=== PATIENT | female | born 1990 | race American Indian/Alaskan Native ===

== ENCOUNTER 2018-05-15 06:58 | Inpatient (IN) | payer MEDICAID ==
--- NOTE | 2018-05-14 23:22 | History and Physical Report ---
History of Present Illness Date of examination: 05/15/18 Chief complaint: Patient intermittent for repeat section at 36 weeks due to suspicion of placenta acreta. Patient does have documented placenta previa by ultrasound and MRI History of present illness: Menstrual History Regularity: regular Menses every: 30 days Duration: 4-5 LMP: 11/06/2017 LMP character: normal test type: urine test BC at conception: none Planned ? no EDC Calculations LMP: 08/13/2018 EDC Confirmation: 06/12/2018 Past History : 3 Term Births: 1 Premature Births: 1 Living Children: 1 Para: 2 Aborta: 0 Elect. Ab: 0 Spont. Ab: 0 Ectopics: 0 # 1 Delivery date: 2009 Weeks Gestation: 20wks Delivery type: Delivery location: [facility] Sex: twins weight: unknown Comments: after fall down stairs. Pt states she never saw babies # 2 Delivery date: 2014 Weeks Gestation: 41 labor: no Delivery type: Delivery location: [facility] [place] Sex: Female weight: 7# Comments: CPD Past Medical History: Sickle cell - patient does't know if she has dx or trait, no hx crisis Past Surgical History: Past Medical History Surgery (Non-gynecology teacher): Abnormal PAP: negative Family Hx: no known family medical hx Social Hx: single no ETOH/Drugs/Smoking Infection History Hx of STD: none HIV Risk Eval: low risk Hepatitis B Risk Eval: low risk Personal hx. of genital herpes: no Partner hx. of genital herpes: no Rash, Viral, or Febrile illness since last LMP? no Varicella/Chicken Pox Status: Unknown Genetic History Congenital Heart Defect: Mom: no Dad: no Criselda Disease: Mom: no Dad: no Thalassemia Mom: no Dad: no Neural Tube Defect Mom: no Dad: no Down's Syndrome Mom: no Dad: no Chriss-Sachs Mom: no Dad: no Sickle Cell Disease/Trait Mom: no Dad: no Hemophilia Mom: no Dad: no Muscular Dystrophy Mom: no Dad: no Cystic Fibrosis Mom: no Dad: no [place] Chorea Mom: no Dad: no Mental Retardation Mom: no Dad: no Fragile X Mom: no Dad: no Other Genetic/Chromosomal Disorder Mom: no Dad: no Child w/other defect Mom: no Dad: no Enviromental Exposures Xray Exposure: no Medication, drug, or alcohol use since LMP: no Chemical/Other Exposure: no Exposure to Cat Liter: no Hx of Parvovirus (Fifth Disease): no Occupational Exposure to Children: none Active Medications (reviewed today): None Current Allergies (reviewed today): No known allergies Laboratory Results Past History Past Medical History: other (See HPI) Past Surgical History: section, other (See HPI) Social history: other (See HPI) - Obstetrical History Expected Date of Delivery: 06/12/18 Actual Gestation: 36 Week(s) 0 Day(s) : 3 Para: 1 Hx # Term Pregnancies: 1 Number of Pregnancies: 1 Spontaneous Abortions: 0 Induced : 0 Number of Living Children: 1 Medications and Allergies Allergies Allergy/AdvReac Type Severity Reaction Status Date / Time No Known Allergies Allergy Verified 05/15/18 07:11 Home Medications Medication Instructions Recorded Confirmed Last Taken Type RX: No Known Home Medications [No 05/15/18 05/15/18 Unknown History Reported Home Medications] - Physical Exam Breasts: Positive: deferred Cardiovascular: Regular rate Lungs: Positive: Normal air movement Abdomen: Positive: normal appearance, soft Genitourinary (Female): Positive: normal external genitalia Uterus: Positive: enlarged - Obstetrical FHR: auscultation normal Uterine Contraction Pattern: Absent Results Result Diagrams: 05/15/18 07:41 All other labs normal. Assessment and Plan - Patient Problems (1) Insufficient care in third trimester Current Visit: No Status: Acute (2) Placenta accreta Onset Date: ~04/30/18 Current Visit: No Status: Acute Qualifiers: Trimester: third trimester Qualified Code(s): O43.213 - Placenta accreta, third trimester Plan to address problem: section will be done with Dr. Vargas preparations ready in case of hysterectomy may be required. This was then discussed with the patient several occasions with us and with the perinatologist. Patient understands and desires to proceed (3) Previous section Onset Date: ~04/30/18 Current Visit: No Status: Acute Plan to address problem: Patient informed the risks of the surgery include bleeding possibly bleeding heavy enough to require blood transfusion, infection possible damage to bowel bl adder ureter. All questions answered. Patient agrees to proceed
[~2018-05-15 06:58] MED LIST: ANCEF/STERILE WATER 2 GM/20 ML 2 GM/20 ML SYRINGE IV NR
[2018-05-15] MEDS ORDERED: BICITRA PO NR (07:30)
[2018-05-15] MEDS ORDERED: REGLAN IV NR (07:30)
[2018-05-15] MEDS ORDERED: PITOCin/NS 20 UNIT/1000ML DRIP 20 UNITS/1,000 ML BAG IV SCH ×2 (07:30→14:23)
[2018-05-15] MEDS ORDERED: PEPCID IV NR (07:30)
[2018-05-15] MEDS: LACTATED RINGERS 1,000 ML IV SCH ×3 (07:50→18:34)
[2018-05-15 07:54] LABS: Basophils % (Auto) 0.2 % (0.0-1.8); Eosinophils # (Auto) 0.2 K/mm3 (0.0-0.4); Hematocrit 34.3 % (30.3-42.9); Hemoglobin 11.2 gm/dl (10.1-14.3); Lymphocytes # (Auto) 1.7 K/mm3 (1.2-5.4); Lymphocytes % (Auto) 22.8 % (13.4-35.0); Mean Corpuscular HGB Conc 33 % (30-34); Monocytes # (Auto) 0.8 K/mm3 (0.0-0.8); Monocytes % (Auto) 10.3 % (0.0-7.3); Platelet Count 302 K/mm3 (140-440); Red Blood Count 4.94 M/mm3 (3.65-5.03); Red Cell Distribution Width 16.4 % (13.2-15.2)
[2018-05-15 08:00] LABS: Mean Corpuscular Volume 70 fl (79-97)
[2018-05-15] MEDS ORDERED: ASTRAMORPH PF 10MG/10ML ONE (08:26)
[2018-05-15] MEDS ORDERED: SENSORCAINE/DEXTR 0.75-8.25% INFILTRATI ONE (08:26)
[2018-05-15] MEDS ORDERED: SUBLIMAZE ONE (08:26)
[2018-05-15] MEDS ORDERED: ANCEF/STERILE WATER 2 GM/20 ML 2 GM/20 ML SYRINGE IV NR (08:30)
[2018-05-15] MEDS ORDERED: ANCEF/STERILE WATER 2 GM/20 ML 2 GM/20 ML SYRINGE IV ONE (08:38)
[2018-05-15] MEDS ORDERED: NARCAN 0.4 MG/1 ML IV PRN ×2 (09:00→14:23)
[2018-05-15] MEDS ORDERED: SODIUM CHLORIDE FLUSH SYRINGE 10 ML IV PRN (09:00)
[2018-05-15] MEDS ORDERED: ANCEF/STERILE WATER 2 GM/20 ML IV ONE (09:00)
[2018-05-15] MEDS ORDERED: ZOFRAN IV PRN ×2 (09:00→14:23)
[2018-05-15] MEDS ORDERED: PHENERGAN PO PRN (09:00)
[2018-05-15] MEDS ORDERED: PHENERGAN PR PRN (09:00)
[2018-05-15] MEDS ORDERED: NACL 0.9% IR ONE (09:28)
[2018-05-15] MEDS ORDERED: WATER FOR IRRIG STERILE IR ONE (09:29)
[2018-05-15] MEDS ORDERED: VERSED ONE (09:43)
[2018-05-15] MEDS ORDERED: NEO SYNEPHRINE ONE (09:58)
[2018-05-15] MEDS ORDERED: ZOFRAN ONE (09:59)
[2018-05-15] MEDS ORDERED: KETALAR ONE (10:00)
[2018-05-15] MEDS ORDERED: NACL 0.9% 500 ML 500 ML IV NR (10:30)
--- NOTE | 2018-05-15 11:08 | Operative Report ---
Operative Report Operative Report: Date of procedure: 05/15/2018 Pre-operative diagnosis:. at 36 weeks with previous section, placenta previa suspicion of placenta accreta Post-operative diagnosis: Same plus definitive placental accreta with hemorrhaging Procedure name(s): Low transverse section with a supracervical hysterectomy Surgeon: Solomon Herron MD Supervising Broker: Maya Vargas M.D. Anesthesia: Spinal EBL: 2000 mL Complications: Placenta accreta Findings: Male weight 5 lbs. 11 oz. Apgars 8 at 1 minute and 8 at 5 minutes. Normal tubes and ovaries bilaterally. Placenta previa noted with the placenta accreta on the posterior lower uterine segment. Could not remove the placenta posteriorly due to placenta invading the myometrium posteriorly Specimen(s): Procedure: The patient was brought to the operating room. A spinal was placed without any complications. She was then placed in left lateral tilt. Prepped and draped in the usual sterile manner. After testing for adequate anesthesia level, a Pfannenstiel incision was made through her previous scar. This incision was taken down to the fascia. The fascia was then nicked in the midline. This incision was extended out laterally with Wiggins scissors. The fascia was then sharply and bluntly from the underlying rectus muscles. The rectus muscles were bluntly and sharply . The peritoneum was then entered with the stamping press operator's fingers. This incision was spread vertically with care not to damage the bladder below. The bladder flap was then formed sharply and bluntly with Metzenbaum scissors. The Mauricio self-retaining tractor was then placed without any difficulty. A transverse incision was made in lower uterine segment. This incision was extended laterally with the operators fingers. The anterior placenta was present. The amniotic sac was then entered bluntly with the stamping press operator's fingers. The was delivered from the vertex position. Bulb suction on the mother's abdomen. Cord was double clamped and cut. The was then passed to the nursery personnel who were in attendance. The above scores were given by the nursery personnel. The placenta did not release with uterine massage and manually try to remove the placenta but they're accreta as noted above was noted. The patient was significant amount of bleeding from the bed with placenta was lying in incision was made and removed to hysterectomy. As noted above patient had had multiple conversations about this possibility and she verbally agreed to proceed with hysterectomy. The uterine fundus was then grasped with a tenaculum. Starting on the patient's right side the round ligament was double clamped cut and ligated. Anteriorly the bladder flap was formed. An avascular window under the utero- ovarian complex was created by the stamping press operator's fingers the uterine ovarian complex was double clamped and cut using Marni clamps and 0 Vicryl which was used throughout the case. The uterine vessels were then skeletonized clamped. The same procedure was then performed on the patient's left side. With the bladder flap pushed away further and the left uterine vessels clamped and cut. Again the bladder was pushed away and the clamp uterine vessels on the right side were cut. Progressively the uterine vasculature were clamped with a straight Marni clamp and cut on each side. Due to the distortion of anatomy and the end of the cervix not positively palpated decision was made to do a supracervical hysterectomy. The reach past the level of the placenta previa and clamps were across the lower uterine segment. The specimen cut away from the cervical stump. These cord stump was closed with a Lindsey stitch. The rest of the stump was closed in midline with beaanm-[id number] sutures. The bladder flap was copiously irrigated and found to be hemostatic after additional [id number]-[id number] sutures. The pelvis was copiously irrigated and found to be hemostatic. Surgicel was placed along the vaginal cuff for postoperative hemostasis all instruments were then removed. The rectus muscles were appr oximated with 0 Vicryl. The rectus muscles were inspected and found to be hemostatic and irrigation Bovie. The fascia was then closed in a running manner with 0 Vicryl. This closure was hemostatic at the irrigation and Bovie. The skin was then reapproximated subcuticularly with 4 Vicryl. The patient tolerated the procedure well. She was awakened in the operating room. Accompanied to recovery room in good condition. Instrument count correct 3
[2018-05-15] MEDS ORDERED: DILAUDID ONE (11:22)
[2018-05-15] MEDS ORDERED: LANSINOH TP PRN (14:23)
[2018-05-15] MEDS ORDERED: TUCKS PAD TP PRN (14:23)
[2018-05-15] MEDS ORDERED: MILK OF MAGNESIA PO PRN (14:23)
[2018-05-15] MEDS ORDERED: SODIUM CHLORIDE FLUSH SYRINGE 10 ML IV NR (14:23)
[2018-05-15] MEDS ORDERED: TORADOL ONE (15:08)
[2018-05-15] MEDS: TORADOL IV SCH ×2 (15:14→22:41)
--- NOTE | 2018-05-15 16:52 | Event Note ---
Date: 05/15/18 Day of surgery. Discuss operative findings with patient and questions answered. She will receive an second unit of packed red blood cells. Patient without fever. Good urine output. We will continue routine postoperative care.
[2018-05-15] MEDS: ANCEF/NS 1 GM/50 ML 1 GM/50 ML BAG IV SCH (18:34)
[2018-05-15 21:32] LABS: Hematocrit 21.8 % (30.3-42.9); Hemoglobin 7.1 gm/dl (10.1-14.3)
[2018-05-15] MEDS ORDERED: NUBAIN IV ONE (22:15)
[2018-05-15] MEDS: FEOSOL PO SCH (22:41)
[2018-05-16] MEDS: ANCEF/NS 1 GM/50 ML 1 GM/50 ML BAG IV SCH (01:24)
[2018-05-16] MEDS: LACTATED RINGERS 1,000 ML IV SCH (02:10)
[2018-05-16] MEDS ORDERED: NACL 0.9% 500 ML 500 ML IV ONE (06:26)
[2018-05-16] MEDS ORDERED: BENADRYL PO ONE (06:43)
[2018-05-16] MEDS ORDERED: TYLENOL PO ONE (06:44)
[2018-05-16] MEDS: NORCO 5/325 PO PRN ×3 (08:10→16:30)
[2018-05-16] MEDS: IBUPROFEN PO PRN ×2 (08:11→16:30)
--- NOTE | 2018-05-16 08:16 | Progress Note ---
Assessment and Plan POD 1 S/p c/s for placenta previa with hysterectomy d/t placental accreta. Patient is resting comfortably in bed, reports feeling well. Unable to assess incision d/t dressing still in place-to be removed this morning with shower. Dressing is clean, dry, intact, no drainage or bleeding noted, no signs of infection. Patient reports bleeding is small. Denies any dizziness when standing or ambulating. Review of recent VS- hr slightly elevated. Apical pulse 98 currently. 1 unit PRBC ordered to be given today. Will repeat H&H at 1100 today. Continue current Post op pathway. Subjective - Subjective Date of service: 05/16/18 Principal diagnosis: POD 1 s/p section Patient reports: appetite normal, voiding normally, pain well controlled, ambulating normally, no dizzy ambulation, no flatus Objective - Vital Signs Latest vital signs: Vital Signs Temp Pulse Resp BP BP Pulse Ox 05/16/18 03:35 98.9 F 108 H 16 112/57 98 05/16/18 01:05 99.1 F 116 H 18 103/51 98 05/15/18 22:56 18 05/15/18 22:41 18 05/15/18 19:55 98.8 F 104 H 18 107/56 97 05/15/18 18:15 98.1 F 98 H 14 98/43 95 05/15/18 17:06 98.0 F 96 H 18 101/49 96 05/15/18 16:25 97.7 F 98 H 14 95/50 98 05/15/18 15:38 97.9 F 97 H 16 104/54 98 05/15/18 15:14 18 05/15/18 15:05 97.6 F 95 H 18 101/48 100 05/15/18 14:45 97.9 F 114 H 12 101/49 99 05/15/18 14:20 97.9 F 101 H 20 110/49 94 05/15/18 13:35 98 F 100 H 16 122/58 100 05/15/18 13:20 98 F 106 H 14 115/61 100 05/15/18 13:00 97.4 F L 100 H 19 117/62 100 05/15/18 12:45 97.5 F L 99 H 17 118/60 100 05/15/18 12:30 99 H 16 117/60 100 05/15/18 12:28 97.7 F 97 H 16 117/60 100 05/15/18 12:15 97.5 F L 110 H 17 119/64 100 05/15/18 12:04 97.5 F L 108 H 16 123/66 100 05/15/18 12:00 106 H 16 123/66 100 05/15/18 11:45 108 H 16 135/67 100 05/15/18 11:30 103 H 18 133/64 100 05/15/18 11:25 90 16 125/62 100 05/15/18 11:20 87 20 116/53 100 05/15/18 11:15 106 H 18 138/64 93 05/15/18 11:11 97.3 F L 109 H 14 148/99 100 05/15/18 08:10 99.0 F 18 Intake and Output 05/15/18 05/16/18 05/16/18 23:59 07:59 15:59 Intake Total 680 1430 Output Total 1100 1600 Balance -420 -170 Intake: IV 50 950 ANCEF/NS 1 GM/50 ML 1 gm 50 In 50 ml @ 100 mls/hr IV Q8H CHUCK Rx#:[id number] Lactated Ringers 1,000 ml 950 @ 125 mls/hr IV DIRECT CHUCK Rx#:[id number] Oral 200 Intake, Free Water 180 480 Blood Product 250 Leukoreduced Red Blood 250 Cells Unit [id number] Output: Urine 1100 1600 Indwelling Catheter 1100 1600 Other: Total, Intake Amount 200 Total, Output Amount 800 1600 - Exam Breasts: Present: normal Cardiovascular: Present: Regular rate, Normal S1, Normal S2 Lungs: Present: Clear to auscultation Abdomen: Present: normal appearance, soft Uterus: Present: normal, firm Extremities: Present: normal Incision: Present: normal, dry, intact - Labs Labs: Abnormal lab results 05/15/18 05/15/18 Range/Units 07:41 21:04 Hgb 7.1 L D (10.1-14.3) gm/dl Hct 21.8 L D (30.3-42.9) % Crossmatch See Detail
--- NOTE | 2018-05-16 08:41 | Event Note ---
Date: 05/16/18 Agree with MW exam and noted. Will await h/h after second unit of blood. Will con't current post op care. Pt doing well.
[2018-05-16] MEDS ORDERED: NACL 0.9% 250ML 250 ML ONE (09:46)
[2018-05-16] MEDS: FEOSOL PO SCH (11:04)
[2018-05-16] MEDS: PRENATAL VITAMIN PO SCH (11:04)
[2018-05-16] MEDS ORDERED: NORCO 5/325 PO PRN (17:41)
[2018-05-16 17:58] LABS: Hematocrit 21.7 % (30.3-42.9); Hemoglobin 7.3 gm/dl (10.1-14.3)
[2018-05-16] MEDS: PERCOCET 5/325 PO PRN (19:18)
[2018-05-17] MEDS: PERCOCET 5/325 PO PRN ×4 (01:25→20:04)
[2018-05-17] MEDS: FEOSOL PO SCH ×2 (01:26→10:17)
[2018-05-17] MEDS: IBUPROFEN PO PRN ×3 (07:46→20:06)
--- NOTE | 2018-05-17 09:22 | Progress Note ---
Assessment and Plan - Patient Problems (1) Insufficient care in third trimester Current Visit: No Status: Acute (2) Placenta accreta Onset Date: ~04/30/18 Current Visit: No Status: Acute Qualifiers: Trimester: third trimester Qualified Code(s): O43.213 - Placenta accreta, third trimester (3) Previous section Onset Date: ~04/30/18 Current Visit: No Status: Acute (4) Status post emergency hysterectomy Current Visit: Yes Status: Acute (5) Anemia due to acute blood loss Current Visit: Yes Status: Acute Plan to address problem: Patient without orthostatic symptoms at this point we'll repeat H&H. Discussed with the patient the risks of severe anemia and report any evidence of hypovolemia Subjective Date of service: 05/17/18 Principal diagnosis: POD 2 s/p hysterectomy Interval history: Postoperative day #2. . Patient without fever. Patient denies any nausea or vomiting. Patient denies and orthostatic symptoms We will continue routine postoperative care. Patient status post 3 units of packed red blood cells. Patient's postoperative hematocrit 21.7%. Patient's she states is still in the intensive care unit off of oxygen but having difficulty with feeding. Objective - Constitutional Vitals: Vital Signs - 12hr 05/17/18 05/17/18 01:07 08:12 Temperature 98.3 F 98.0 F Pulse Rate 91 H Respiratory 18 18 Rate Blood Pressure 106/57 111/69 O2 Sat by Pulse 100 Oximetry General appearance: Present: no acute distress - Respiratory Respiratory effort: normal - Breasts Breasts: deferred - Cardiovascular Rhythm: regular Extremities: pulses intact, No edema, Full ROM - Gastrointestinal General gastrointestinal: Present: soft, tender (appropriately post operative), normal bowel sounds Rectal Exam: deferred - Genitourinary Female genitourinary: deferred - Integumentary Integumentary: clear, warm, dry - Musculoskeletal Musculoskeletal: 1, strength equal bilaterally - Neurologic Neurologic: moves all extremities - Psychiatric Psychiatric: memory intact, appropriate mood/affect, intact judgment & insight - Labs CBC & Chem 7: 05/16/18 17:20 Labs: Abnormal lab results 05/15/18 05/16/18 Range/Units 07:41 17:20 Hgb 7.3 L (10.1-14.3) gm/dl Hct 21.7 L (30.3-42.9) % Crossmatch See Detail Medications & Allergies - Medications Allergies/Adverse Reactions: Allergies No Known Allergies Allergy (Verified 05/15/18 07:11) Home Medications: Home Medications Medication Instructions Recorded Confirmed Last Taken Type No Known Home Medications [No 05/15/18 05/15/18 Unknown History Reported Home Medications] Active Medications: Generic Name Dose Route Start Last Admin Trade Name Maxxq PRN Reason Stop Dose Admin Ferrous Sulfate 325 mg 05/15/18 22:00 05/17/18 01:26 Feosol PO 325 mg BID CHUCK Administration Oxytocin/Sodium Chloride 20 units in 1,000 mls @ 250 mls/hr 05/15/18 14:23 Pitocin/Ns 20 Unit/1000ml Drip IV DIRECT CHUCK Lactated Ringer's 1,000 mls @ 125 mls/hr 05/15/18 18:40 05/16/18 02:10 Lactated Ringers IV 125 mls/hr DIRECT CHUCK Administration Ibuprofen 800 mg 05/15/18 14:23 05/17/18 07:46 Motrin PO 800 mg Q6H PRN Administration Pain, Mild (1-3) Magnesium Hydroxide 30 ml 05/15/18 14:23 Milk Of Magnesia PO QHS PRN Constip Unrelieved By Senna Multi-Ingredient Ointment 1 applic 05/15/18 14:23 Lansinoh TP PRN PRN dryness/cracking Multivitamins/Iron/Calcium 1 each 05/16/18 10:00 05/16/18 11:04 Vitamin PO 1 each QDAY CHUCK Administration Naloxone HCl 0.1 mg 05/15/18 14:23 Narcan 0.4 Mg/1 Ml IV Q2MIN PRN Res Rate </= 8 or 02 SAT < 92% Ondansetron HCl 4 mg 05/15/18 14:23 Zofran IV Q8H PRN Nausea And Vomiting Oxycodone/Acetaminophen 2 tab 05/16/18 18:19 05/17/18 07:45 Percocet 5/325 PO 2 tab Q6H PRN Administration Pain, Moderate (4-6) Sodium Chloride 10 ml 05/15/18 14:23 Sodium Chloride Flush Syringe 10 Ml IV 05/17/18 14:22 PRN NR Witch Nanda/Glycerin 1 each 05/15/18 14:23 Tucks Pad TP PRN PRN Hemorrhoids/cleansing/soothing
[2018-05-17] MEDS: PRENATAL VITAMIN PO SCH (10:17)
[2018-05-17 12:30] LABS: Hemoglobin 6.9 gm/dl (10.1-14.3)
[2018-05-17 12:51] LABS: Hematocrit 20.5 % (30.3-42.9)
[2018-05-17] MEDS ORDERED: NACL 0.9% 500 ML 500 ML IV NR (16:39)
[2018-05-18] MEDS: IBUPROFEN PO PRN ×2 (07:16→14:53)
[2018-05-18] MEDS: PERCOCET 5/325 PO PRN ×2 (07:16→14:52)
--- NOTE | 2018-05-18 10:09 | Discharge Summary ---
Providers - Providers Date of Admission: 05/15/18 06:58 Date of discharge: 05/18/18 Attending physician: ROLANDO FERNANDO 05/15/18 14:23 Consult to Chore Tender [CONS] Routine Reason For Exam: Primary care physician: ROLANDO FERNANDO Hospitalization Reason for admission: section, other (placenta previa with suspected accreta) Delivery: Procedure: other ( hysterectomy) Procedure details: See operative note Incision: normal, dry, intact complications: transfusion, other (anemia) Discharge diagnosis: other (placenta accreta ), delivery [place] baby: male Hospital course: Patient was admitted and underwent planned a repeat section with precautions for possible hysterectomy. Patient procedure was complicated by placenta accreta lead into a supracervical hysterectomy. Patient did have significant bleeding due to her placenta accreta. Patient received a total of 4 units packed red blood cells postoperatively. Throughout her post operative she was afebrile. Patient postoperative day 1 hematocrit was 21.7% after 2 units of packed red blood cells. Patient received additional 2 units and was without orthostatic symptoms at time of discharge. Patient was tolerating regular diet and voiding without difficulty at time of discharge. Patient incision was healing well without evidence of infection. Condition at discharge: Good Disposition: DC-01 TO HOME OR SELFCARE - Discharge Diagnoses (1) Insufficient care in third trimester Status: Acute (2) Placenta accreta Status: Acute Qualifiers: Trimester: third trimester Qualified Code(s): O43.213 - Placenta accreta, third trimester (3) Previous section Status: Acute (4) Status post emergency hysterectomy Status: Acute (5) Anemia due to acute blood loss Status: Acute Plan - Provider Discharge Summary Activity: routine, no sex for 6 weeks, no heavy lifting 4 weeks, no strenuous exercise Diet: routine Instructions: routine Additional instructions: [] Smoking cessation referral if applicable(refer to patient education folder for contact #) [] Refer to [facility] Booklet Call your doctor immediately for: * Fever > 100.5 * Heavy vaginal bleeding ( >1 pad per hour) * Severe persistent headache * Shortness of breath * Reddened, hot, painful area to leg or breast * Drainage or odor from incision. * Keep incision clean and dry at all times and follow doctor's instructions re garding bathing/showering - Follow up plan Follow up: ROLANDO FERNANDO MD [Primary Care Provider] - 7 Days
[2018-05-18 11:15] LABS: Hematocrit 24.4 % (30.3-42.9); Hemoglobin 7.9 gm/dl (10.1-14.3)
[2018-05-18] MEDS: PRENATAL VITAMIN PO SCH (11:57)
[2018-05-18] MEDS: FEOSOL PO SCH (11:57)
[2018-05-18 16:30] VITALS: BP 128/74
== END 2018-05-18 15:50 | disposition home or self-care (01) | DRG 765 ==
LOC: APU 06:58 → OB 14:22
PROVIDERS: ADMIT Obstetrics & Gynecology; ATTEND Obstetrics & Gynecology
PROC: 10D00Z1 Extraction of Products of Conception, Low, Open Approach (ICD-10-PCS; principal; 2018-05-15)
PROC: 0UT90ZL Resection of Uterus, Supracervical, Open Approach (ICD-10-PCS; 2018-05-15)
PROC: 30233L1 Transfusion of Nonautologous Fresh Plasma into Peripheral Vein, Percutaneous Approach (ICD-10-PCS; 2018-05-15)
PROC: 30233N1 Transfusion of Nonautologous Red Blood Cells into Peripheral Vein, Percutaneous Approach (ICD-10-PCS; 2018-05-15)
DX: O34.211 Maternal care for low transverse scar from previous cesarean delivery (principal); O60.14X0 Preterm labor third trimester with preterm delivery third trimester, not applicable or unspecified; O44.13 Complete placenta previa with hemorrhage, third trimester; O43.213 Placenta accreta, third trimester; O72.0 Third-stage hemorrhage; Z3A.36 36 weeks gestation of pregnancy; Z37.0 Single live birth; O90.81 Anemia of the puerperium; D62 Acute posthemorrhagic anemia
CPT/HCPCS: 36415; 59025; 85014; 85018; 85025; 86850; 86900; 86901; 86920; 88305; 88307; 96360; 96374; 96375; G0378; J0690; J1170; J1885; J2250; J2274; J2300; J2370; J2405; J2590; J2765; J3010; J7040; J7050; J7120; P9016; P9017